=== PATIENT | female | born 1985 | race Two or more races ===

== ENCOUNTER 2019-06-18 18:10 | Emergency (ER) | payer OTHER ==
[~2019-06-18] VITALS: Ht 142.2 cm; Wt 61.8 kg
[2019-06-18] MEDS ORDERED: diphenhydrAMINE 25mg capsule PO ONE (18:40)
[2019-06-18] MEDS ORDERED: dexamethasone 4mg tablet PO ONE (18:50)
[2019-06-18] MEDS ORDERED: famotidine 10mg tablet PO ONE (18:50)
[2019-06-18] MEDS ORDERED: famotidine 20mg tablet PO ONE (19:00)
[2019-06-18 20:55] LABS: D-DIMER 0.57 MG/L FEU (0-0.50)
[2019-06-18] MEDS ORDERED: PRED20TA PO (21:09)
[2019-06-18 21:18] VITALS: BP 108/59
== END 2019-06-18 21:25 | disposition home or self-care (01) ==
LOC: ER 18:11
DX: R07.89 Other chest pain (principal); L29.9 Pruritus, unspecified; T78.40XA Allergy, unspecified, initial encounter; Z91.030 Bee allergy status; Z79.899 Other long term (current) drug therapy; Y92.89 Other specified places as the place of occurrence of the external cause
CPT/HCPCS: 36415; 84484; 85379; 93005; 99284; Q0163